=== PATIENT | male | born 1995 | race American Indian/Alaskan Native ===

== ENCOUNTER 2020-03-20 12:09 | Emergency (ER) | payer SELFPAY ==
[2020-03-20 16:11] LABS: Basophils % (Auto) 0.7 % (0.0-1.8); Eosinophils % (Auto) 0.6 % (0.0-4.3); Hematocrit 47.7 % (35.5-45.6); Hemoglobin 15.8 gm/dl (11.8-15.2); Lymphocytes # (Auto) 2.1 K/mm3 (1.2-5.4); Lymphocytes % (Auto) 38.2 % (13.4-35.0); Mean Corpuscular HGB Conc 33 % (32-34); Mean Corpuscular Volume 89 fl (84-94); Monocytes # (Auto) 0.3 K/mm3 (0.0-0.8); Monocytes % (Auto) 6.1 % (0.0-7.3); Platelet Count 315 K/mm3 (140-440); Red Blood Count 5.35 M/mm3 (3.65-5.03); Red Cell Distribution Width 13.4 % (13.2-15.2)
[2020-03-20 16:36] LABS: Alanine Aminotransferase 21 units/L (7-56); Albumin 4.7 g/dL (3.9-5); BUN/Creatinine Ratio 13; Blood Urea Nitrogen 10 mg/dL (9-20); Calcium 9.8 mg/dL (8.4-10.2); Hemolysis Index 20
--- NOTE | 2020-03-20 16:47 | Cat Scan Report ---
CT BRAIN: 03/20/2020 INDICATION / CLINICAL INFORMATION: headache. COMPARISON: None available. FINDINGS: BRAIN/INTRACRANIAL STRUCTURES: Unenhanced CT images of the brain demonstrate no evidence of acute int racranial abnormality. Ventricles and sulci are normal in size and shape. There is no evidence of ischemic injury, hemorrhage, or mass. There are no abnormal extra-axial fluid collections. EXTRACRANIAL STRUCTURES: Unremarkable. IMPRESSION: No acute abnormality. All CT scans at this location are performed using dose reduction to ALARA by means of automated expos ure control. Signer Name: Kahlil Holman MD Signed: 03/20/2020 4:42 PM Workstation Name: [id number]
--- NOTE | 2020-03-20 17:06 | Emergency Department Report ---
ED Headache HPI - General Chief Complaint: Nausea/Vomiting/Diarrhea Stated Complaint: VERTIGO Time Seen by Provider: 03/20/20 14:38 - History of Present Illness Initial Comments: 25-year-old F [place]ian male with no significant past medical history presents emergency department complaining of a few hour history headache associated with nausea but reports no preceding aura symptoms. Reports no visual disturbances states that this headache has pretty much resolved and now he is more focused on general abdominal pain primarily to the epigastric region of a sharp throbbing type nature. Reports no hemoptysis no hematemesis no hematochezia, no vomiting, no diarrhea, no constipation, no fevers, chills, sweats. Reports no dysuria Timing/Duration: 4-6 hours Quality: mild, moderate Head Injury Location: frontal, parietal Recent Head Trauma: occasional headaches (But improved) Associated Symptoms: nausea/vomiting. denies: confusion, fatigue, facial pain, fever/chills, flushing, loss of consciousness, nasal congestion, nasal drainage, sinus infection, stiff neck, vision changes, weakness Allergies/Adverse Reactions: Allergies No Known Allergies Allergy (Unverified 03/20/20 12:23) Home Medications: Ambulatory Orders Ketorolac [Toradol] 10 mg PO Q6H PRN #15 tablet 03/20/20 Metoclopramide [Reglan] 10 mg PO TID #20 tab 03/20/20 ED Review of Systems ROS: Stated complaint: VERTIGO Other details as noted in HPI Comment: All other systems reviewed and negative ED Past Medical Hx - Past Medical History Previous Medical History?: No - Surgical History Past Surgical History?: No - Medications Home Medications: Home Medications Medication Instructions Recorded Confirmed Last Taken Type Ketorolac [Toradol] 10 mg PO Q6H PRN #15 tablet 03/20/20 Unknown Rx Metoclopramide [Reglan] 10 mg PO TID #20 tab 03/20/20 Unknown Rx ED Physical Exam - General Limitations: No Limitations General appearance: alert, in no apparent distress - Head Head exam: Present: atraumatic, normocephalic - Eye Eye exam: Present: normal appearance, PERRL, EOMI. Absent: nystagmus Pupils: Present: normal accommodation, other (Negative funduscopic examination.) - ENT ENT exam: Present: normal exam, normal orophraynx, mucous membranes moist, other - Neck Neck exam: Present: normal inspection, full ROM, other (No bruits). Absent: tenderness, meningismus, lymphadenopathy, thyromegaly - Respiratory Respiratory exam: Present: normal lung sounds bilaterally. Absent: respiratory distress, wheezes, rales, rhonchi, chest wall tenderness, accessory muscle use, decreased breath sounds - Cardiovascular Cardiovascular Exam: Present: regular rate, normal rhythm. Absent: systolic murmur, diastolic murmur, rubs, gallop - GI/Abdominal GI/Abdominal exam: Present: soft, tenderness, normal bowel sounds. Absent: guarding, rebound, hyperactive bowel sounds, hypoactive bowel sounds, organomegaly, bruit, pulsatile mass - Rectal Rectal exam: Present: deferred. Absent: normal inspection - Extremities Exam Extremities exam: Present: normal inspection, full ROM, normal capillary refill - Back Exam Back exam: Present: normal inspection. Absent: CVA tenderness (R), CVA tenderness (L) - Neurological Exam Neurological exam: Present: alert, oriented X3, CN II-XII intact, normal gait. Absent: abnormal gait, motor sensory deficit, reflexes normal - Psychiatric Psychiatric exam: Present: normal affect, normal mood. Absent: depressed, agitated, anxious, flat affect, manic - Skin Skin exam: Present: warm, dry, intact, normal color. Absent: rash, diaphoretic, erythema, urticaria, petechiae, pallor, abrasion, ecchymosis ED Course Vital Signs 03/20/20 12:23 Temperature 98.5 F Pulse Rate 67 Respiratory 18 Rate Blood Pressure 139/91 [Right] O2 Sat by Pulse 100 Oximetry ED Medical Decision Making - Lab Data Result diagrams: 03/20/20 15:52 03/20/20 15:52 - Radiology Data Radiology results: report reviewed [facility] [address] [place] [address] Cat Scan Report Signed Patient: AMINATA FELDER MR#: [id number] : 1995 Acct:[id number] Age/Sex: 25 / M ADM Date: 03/20/20 Loc: ED Attending Dr: Ordering Physician: ACE SPEAR Date of Service: 03/20/20 Procedure(s): CT head/brain wo con Accession Number(s): [id number] cc: ACE SPEAR CT BRAIN: 03/20/2020 INDICATION / CLINICAL INFORMATION: headache. COMPARISON: None available. FINDINGS: BRAIN/INTRACRANIAL STRUCTURES: Unenhanced CT images of the brain demonstrate no evidence of acute intracranial abnormality. Ventricles and sulci are normal in size and shape. There is no evidence of ischemic injury, hemorrhage, or mass. There are no abnormal extra-axial fluid collections. EXTRACRANIAL STRUCTURES: Unremarkable. IMPRESSION: No acute abnormality. All CT scans at this location are performed using dose reduction to ALARA by means of automated exposure control. Signer Name: Kahlil Holman MD Signed: 03/20/2020 4:42 PM Workstation Name: [id number] Transcribed By: AO Dictated By: Kahlil Holman MD Electronically Authenticated By: Kahlil Holman MD Signed Date/Time: 03/20/201641 DD/ 40 TD/TT: - Medical Decision Making This patient presents with a headache most consistent with migraine. Differential diagnosis includes migraine versus tension type headache. No headache red flags. Neurologic exam without evidence of meningismus, focal neurologic findings.Based on the patient's history and physical there is very low clinical suspicion for significant intracranial pathology. The headache was NOT sudden onset, NOT maximal at onset, there are NO neurologic findings, the p atient does NOT have a fever, the patient does NOT have any jaw claudication, the patient does NOT endorse a clotting disorder, patient DENIES any trauma or eye pain and the headache is NOT associated with dizziness or ataxia. Presentation not consistent with acute intracranial bleed to include SAH (lack of risk factors, headache history). Presentation not consistent with acute [employer] infection to include meningitis or brain abscess, Temporal arteritis unlikely, as is acute angle closure glaucoma given history and physical findings. Presentation not consistent with other acute, emergent causes of headache at this time. Plan to treat symptomatically with pain medication. No indication for imaging/LP at this time. CT scan is normal Plan: pain medication and follow-up with PCP and neurology CT scan was of normal variation and symptoms are resolved as far as headache This patient presents with abdominal pain of unclear etiology. A CT scan was performed to evaluate for potential causes of the abdominal pain, however, neither the clinical exam nor the CT has identified an emergent etiology for the abdominal pain. Specifically, given the benign exam, the laboratory studies, and unremarkable CT, I have a very low suspicion for appendicitis, ischemic bowel, bowel perforation, or any other life threatening disease. I have discussed with the patient the level of uncertainty with undifferentiated abdominal pain and clearly explained the need to follow-up as noted on the discharge instructions, or return to the Emergency Department immediately if the pain worsens, develops fever, persistent and uncontrollable vomiting, or for any new symptoms or concerns. Critical care attestation.: If time is entered above; I have spent that time in minutes in the direct care of this critically ill patient, excluding procedure time. ED Disposition Clinical Impression: Cephalgia, Abdominal pain Disposition: DC-01 TO HOME OR SELFCARE Is pt being admited?: No Does the pt Need Aspirin: No Condition: Stable Instructions: Acute Abdominal Pain (ED), Acute Headache (ED), Migraine Headache (ED) Prescriptions: Metoclopramide [Reglan] 10 mg PO TID #20 tab Ketorolac [Toradol] 10 mg PO Q6H PRN #15 tablet PRN Reason: Pain Referrals: JAVON LINARES MD [Primary Care Provider] - 3-5 Days
[2020-03-20 17:49] VITALS: BP 128/74
== END 2020-03-20 17:50 | disposition home or self-care (01) ==
LOC: ED 12:09
DX: R51 Headache (principal); R10.9 Unspecified abdominal pain; Z79.899 Other long term (current) drug therapy
CPT/HCPCS: 36415; 70450; 80053; 83690; 85025